=== PATIENT | female | born 1940 | race Caucasian/White ===

== ENCOUNTER → 2019-06-23 05:00 | Outpatient (REF) | payer MEDICARE, OTHER, SELFPAY ==
[2019-06-23 08:43] LABS: Valproic Acid (Depakene) Level < 3 ug/mL (50-100)
== END ==
LOC: OLS.BROOKB 05:00
DX: Z79.899 Other long term (current) drug therapy (principal)
CPT/HCPCS: 36415; 80164

== ENCOUNTER 2019-06-24 20:42 | Inpatient (IN) | payer MEDICARE, OTHER, SELFPAY ==
[2019-06-24 20:44] VITALS: BP 133/67; PULSE 96; RESP 17; TEMP 36.7; O2SAT 97; BMI 25.4
--- NOTE | 2019-06-24 21:26 | CT_ITS ---
HISTORY: FALL WITH LOC/VOMITING. Hx of Alzheimer's Technique:CT Head or Brain W/O Contrast Injection Number of Images including paperwork:231 Comparison: None available. Findings: CT images of the head were obtained without contrast. Periventricular deep and subcortical white matter disease is present. Paranasal sinuses are clear. The brain is atrophic. Calcific ASCVD involves intracranial arteries. No acute intracranial edema or hemorrhage. No acute abnormality of orbits. Middle ear cavities and mastoid air cells are well aerated. Skull is normal. CT/Brain/Head without Contrast IMPRESSION: No acute intracranial abnormality. Chronic changes as above. ASPECT 10. Individualized dose optimization techniques were used for this CT. at 2332 Reported and signed by: Marvel Beverly MD Electronically Signed: Marvel Beverly MD at 23:31 EST Tel , Service support ,
--- NOTE | 2019-06-24 21:26 | EKG12_ITS ---
Test Reason : DYSRYTHMIA Blood Pressure : / mmHG Vent. Rate : 096 BPM Atrial Rate : 096 BPM P-R Int : 184 ms QRS Dur : 130 ms QT Int : 396 ms P-R-T Axes : 041 -79 030 degrees QTc Int : 500 ms Normal sinus rhythm Right bundle branch block Left anterior fascicular block Bifascicular block Abnormal ECG Confirmed by JACOB LOZANO, HUMPHREY ([id number]), brands editor LYNNE PITTMAN ([id number]) on 06/28/2019 10:31:40 AM Referred By: QUYNH Confirmed By:MALLORY JAMES MD
--- NOTE | 2019-06-24 21:27 | CT_ITS ---
HISTORY: FALL WITH LOC/VOMITING. Hx of Alzheimer's TECHNIQUE: Helically acquired images were obtained of the abdomen and pelvis without oral or IV contrast. A radiation dose optimization technique was used for this scan. COMPARISON: None FINDINGS: # of images incl. paperwork: 422 LUNG BASES: There is a right lower lobe benign calcified granuloma. Some atelectasis and/or scarring is also present within the lung bases. CT abdomen: Degenerative disc disease is mild but greatest at the L4 L5 level with loss of disc height, endplate sclerosis, and some disc gas phenomenon. Facet arthropathy is also present within the lower lumbar spine The gallbladder remains. Liver, spleen, pancreas, and adrenal glands are normal. The kidneys are normal. The aorta is diseased with atherosclerotic circumferential plaque without aneurysm. There is no intra-or extrahepatic biliary ductal dilatation. CT pelvis: No ascites is present. The uterus and ovaries are not enlarged. The appendix is normal. Series 2 image 109. The bladder is normal. Bowel gas pattern is normal. CT/Abdomen/Pelvis without Cont IMPRESSION: No acute intra-abdominal or pelvic disease. Individualized dose optimization techniques were used for this CT. at 2342 Reported and signed by: Marvel Beverly MD Electronically Signed: Marvel Beverly MD at 23:41 EST Tel , Service support ,
--- NOTE | 2019-06-24 21:33 | ED.RN ---
NO OLD EKG
--- NOTE | 2019-06-24 21:40 | RAD_ITS ---
STUDY: X-RAY CHEST REASON FOR EXAM: Female, 78 years old. PT ARRIVES TO ED WITH N/V/D SINCE 4:30 PM THIS AFTERNOON. SHE PASSED OUT AND FELL PER DAUGHTER. TECHNIQUE: Frontal view COMPARISON: None. FINDINGS: The lungs are clear and expanded. There is no demonstrated pleural abnormality. Normal size heart. Normal mediastinum and venus. Normal visualized pulmonary arteries. Calcified visualized aortic arch and descending thoracic aorta. Degenerative changes of the thoracic spine. Normal visualized ribs, clavicles, and shoulders. There is no demonstrated abnormality of the visualized soft tissue structures of the upper abdomen. RAD/Chest 1 View (Portable) IMPRESSION: Normal x-ray examination of the chest. Electronically Signed: Abebe Newberry DO at 22:18 EST Tel [phone], Service support ,
[2019-06-24] MEDS: 0.9% Normal Saline 1,000 ML 1000 ML IV (22:21)
[2019-06-24] MEDS: Ondansetron 4 MG/2 ML Vial IV (22:21)
[2019-06-24 22:24] LABS: Absolute Lymphocyte Count 0.63 X10^3/uL (0.83-4.51); Absolute Neutrophil Count 6.9 X10^3/uL (2.0-7.7); Basophil# 0.02 X10^3/uL; Basophil% 0.2 % (0-1); Eosinophil# 0.05 X10^3/uL; Eosinophils% 0.6 % (0-5); Hematocrit 44.4 % (37-47); Hemoglobin 14.3 g/dL (12.0-15.0); Lymphocyte # 0.63 X10^3/ul (4.0); Lymphocyte % 7.8 % (19-41); Mean Corp Hgb Conc 32.2 g/dL (32-36); Mean Corpuscular Hgb 30.5 pg (27.0-32.0); Mean Corpuscular Volume 94.7 fL (81-99); Mean Platelet Vol. 9.2 fl (6.2-12.0); Monocyte# 0.41 X10^3/uL; Monocyte% 5.1 % (0-10); NRBC Flagged by Analyzer 0 % (0-5); Neutrophil % 85.9 % (47-70); Platelet Count 152 K/mm3 (150-450); RBC Distribution Width CV 13.9 % (11.6-14.6); RBC Distribution Width SD 48.2 fl (35.1-43.9); Red Blood Count 4.69 M/mm3 (4.2-5.4)
[2019-06-24 22:38] LABS: Prothrombin Time (Protime)PT. 13.4 SECONDS (11.7-14.9)
[2019-06-24 22:39] LABS: Partial Thromboplast Time 27.1 Seconds (24.1-36.2)
[2019-06-24 22:43] LABS: ALB/GLOB Ratio 1.1 RATIO (0.9-2.4); AST(SGOT) 19 U/L (15-37); Alanine Aminotransfer ALT/SGPT 28 U/L (13-56); Albumin, Serum 3.5 g/dL (3.2-5.0); Alkaline Phosphatase 67 U/L (45-117); Anion Gap 5 (5-15); BUN 15 mg/dL (7-18); BUN/Creat Ratio 18.6 RATIO (10-20); Calcium,Total 8.9 mg/dL (8.5-10.1); Chloride 106 mmol/L (98-107); Creatinine, Serum 0.81 mg/dL (0.55-1.02); EST Glomerular Filtration Rate 72 mL/min (>60); Est Glom Filt Rate - Afr Amer 88 mL/min (>60); Estimated Creatinine Clearance 43.81 ml/min; Globulin 3.2 g/dL (2.2-4.2); Glucose 120 mg/dL (74-106); Lipase 299 U/L (73-393); Potassium 4.2 mmol/L (3.5-5.1); Protein, Total 6.7 g/dL (6.4-8.2); Sodium Level 140 mmol/L (136-145)
[2019-06-24 23:00] VITALS: PULSE 91; RESP 21; O2SAT 97
[2019-06-24 23:09] LABS: Bacteria 0 SEEN /hpf (None Seen); Mucous, Urine 0 SEEN /hpf (<or=2+); Red Blood Cells-Urine 0 SEEN /hpf (0-5); White Blood Cells 0 SEEN /hpf (0-5)
[2019-06-24 23:16] LABS: Glucose, Dipstick Normal (Normal); Ketone-Dipstick 15 mg/dl (Negative); Leukocyte Esterase-Dipstick Negative /ul (Negative); Nitrite-Dipstick Negative (Negative); Occult Blood-Urine Negative /ul (Negative); Protein-Dipstick Negative (Negative); Urine Bilirubin Dipstick Negative (Negative); Urine Urobilinogen 1 mg/dl (Normal)
[2019-06-24 23:17] LABS: Color, Urine Yellow (Yellow); Urine Clarity Sl Cloudy (Clear)
[2019-06-24 23:19] LABS: Squamous Epithelial Cells - UA 0-5 SEEN /hpf (5-10)
[2019-06-24] MEDS: proMETHazine 25 MG/ML Syringe 6.25 MG IV (23:43)
--- NOTE | 2019-06-24 23:57 | ED.VISSUMM ---
- ER Visit Summary Date of Service: 06/24/19 Chief Complaint: Nausea and vomiting History of Present Illness: The patient is a 78 F who resides in the memory care unit at [place]. She presents today for nausea, vomiting. This started this afternoon. She is also having diarrhea, headaches, and she looked pale according to her family. She tried taking Zofran and sips of water, but has continued symptoms. Her daughter was getting her soup, and when she stepped away, the patient fell. She complains of pain to her left knee, but denies any other injuries. Physical Examination: Afebrile and vital signs unremarkable. Head and neck atraumatic. Heart regular. Lungs clear. Abdomen soft. Left knee tender to palpation anteriorly. No deformity or laxity. Neurovascular intact distally. Skin appears unremarkable. Alert and oriented to person. Cranial nerves grossly intact. Normal strength and sensation. Test Results: CT brain unremarkable. CT abdomen showed nothing acute. Chest x-ray showed with normal findings. EKG showed sinus rhythm at a rate of 96 with right bundle branch block pattern and left anterior fascicular block pattern. No sign of acute ischemia or infarction pattern. CBC, CMP, lipase, coags, urinalysis, troponin unremarkable. Emergency Department Course and Treatment: Patient treated with fluids and Zofran. She had continued nausea and was treated with Phenergan. Work-up, as above was all fairly unremarkable, but given her continued symptoms, her residence at a memory unit, and her falling, the hospitalist was contacted for inpatient care. X-rays of the left knee were added. Results are pending. Treatment Plan: As above Disposition: Admission for observation Impression: 1. Nausea and vomiting 2. Fall This note was generated with [employer] dictation software. It may contain incorrect words, spelling, and punctuation that were not noted in review of the chart prior to signing ED Disposition - Plan for ED Patient: Referrals: Donavan Cuenca MD [Primary Care Provider] -
--- NOTE | 2019-06-25 | RAD_ITS ---
HISTORY: FELL 06/24/19WELLING MEDIALLY EXAM: Left Knee COMPARISON: None FINDINGS: # of images incl. paperwork: 2 The joint spaces are well-maintained. No fracture or subluxation. The patellofemoral joint has a normal appearance. No joint effusion is seen. RAD/Knee 1 or 2 Views IMPRESSION: Normal left knee. at 0127 Reported and signed by: Marvel Beverly MD Electronically Signed: Marvel Beverly MD at 1:26 EST Tel , Service support ,
--- NOTE | 2019-06-25 00:09 | PCM.HP.STD ---
Problem List (1) Acute gastroenteritis Status: Acute (2) Fall Status: Acute (3) Left knee pain Status: Acute History of Present Illness Date of Admission: 06/25/19 Chief Complaint: NAUSEA; VOMITING AND DIARRHEA The patient is a 78 year old F with a significant history of Alzheimer dementia; and mitral valve prolapse and who lives at the [facility] [facility] presenting with nausea; vomiting and diarrhea. She was given Zofran at a [place] [facility] but she continued to vomit. Also she pulled her call light at the bathroom and she was found on her hands and knees. She reported that she has pain in the left knee. Per daughter patient has chronic left knee pain. However, her daughter thinks that falling might have worsened patient's pain. History was taken from patient's daughter who is the POA because patient has Alzheimer's dementia and is unable to provide history. Past Medical History Medical History: Medical History (Last Reviewed 06/25/19 @ 03:17 by Jimmy Willis MD) HTN (hypertension) I10 Allergies codeine Allergy (Verified 06/24/19 20:51) Unknown ramipril [From Altace] Allergy (Verified 06/24/19 20:51) Unknown Home Medications: Ambulatory Orders Medication Instructions Recorded Carvedilol 6.25 mg PO BID 06/24/19 Citalopram [Celexa] 10 mg PO QHS 06/24/19 Gabapentin [Neurontin] 300 mg PO TID 06/24/19 Latanoprost 0.005% [Xalatan 1 drop EACH EYE QHS 06/24/19 Opthalmic] Lorazepam 0.25 mg PO Q6H PRN PRN 06/24/19 Memantine Hydrochloride [Namenda] 10 mg PO BID 06/24/19 Ondansetron [Ondansetron Odt] 4 mg PO Q6H PRN PRN 06/24/19 Acetaminophen [Tylenol] 650 mg PO Q6H PRN PRN 06/25/19 Atorvastatin Calcium [Lipitor] 20 mg PO QHS 06/25/19 Divalproex (ER) [Depakote ER] 250 mg PO DAILY@0800 06/25/19 Divalproex (ER) [Depakote ER] 500 mg PO QHS 06/25/19 Sertraline HCl [Zoloft] 50 mg PO QHS 06/25/19 Surgical History: - - vein stripping Psychiatric History: - - Mood disorder Lives: [facility] Smoking Status: Never smoker Alcohol: Rare - *Family History Maternal History Items: Dementia Paternal History Items: Heart Disease Review of Systems Constitutional: Denies: Chills, Fever, Weight Change HEENT: Denies: Head Aches, Sinus Congestion, Sinus Drainage Cardiovascular: Denies: Chest Pain, Palpitations Respiratory: Denies: Cough, Shortness of breath at rest, Sputum production Gastrointestinal: Reports: Diarrhea, Nausea, Vomiting. Denies: Abdominal Pain Genitourinary: Denies: Dysuria Musculoskeletal: Reports: Joint Pain - Left knee pain Skin: Reports: Rash - left back and under left breast. Denies: Wounds Neurological: Denies: Numbness, Tingling, Focal weakness Psychiatric: Denies: Anxiety, Depression, Homicidal Ideations, Suicidal Ideations Hematologic/ Lymphatic: Denies: Easy Bruising, Easy Bleeding VTE Information - Inpt Only VTE Present on Admission: No VTE Mechan Device Prophylaxis: None VTE Pharm Prophylaxis ordered?: Yes Patient Problems: Active and Suspected Problems (Last Updated 06/25/19 @ 00:48 by Jimmy Willis MD) Acute gastroenteritis (Acute) Fall (Acute) Left knee pain (Acute) - Physical Exam Vitals/I&O's: Vital Signs Temp Pulse Resp BP Pulse Ox 98.1 F 91 21 H 133/67 H 97 06/24/19 20:44 06/24/19 23:00 06/24/19 23:00 06/24/19 20:44 06/24/19 23:00 Oxygen Delivery Method Room Air Weight: 63.049 kg Body Mass Index (BMI) 25.4 Intake and Output for Last 24 Hours 06/23/19 06/24/19 06/25/19 23:59 23:59 23:59 Intake Total 1000 / 1000 Balance 1000 / 1000 General: Alert, Confused HEENT: Atraumatic, PERRLA, EOMI, Normocephalic Neck: Supple, Trachea Midline Lungs: Clear to auscultation, Normal air movement, No rhonchi, No wheeze, No rales Cardiovascular: Regular rate, Normal S1, Normal S2, No murmurs Abdomen: Bowel Sounds Present, Soft, Non Tender, Hyperactive Bowel Sounds Extremities: No edema, Capillary Refill Less than 3 Seconds Skin: No breakdown, - - Erythematous patches at left upper back to under breasts (Her daughter report that it is from previous shingles). Musculoskeletal: No Tenderness to Palpation of Joints or Extremities Neurological: Cranial nerves II-XII grossly intact Psych/Mental Status: Normal Affect, Impulsive - Patient got a little impulsive and attempt to get off her bed and attempted to reach IV line. Laboratory Results 06/24/19 21:50: Urine Color Yellow, Urine Clarity Sl Cloudy, Urine pH 8.0, Ur Specific [place] 1.010, Urine Protein Negative, Urine Glucose (UA) Normal, Urine Ketones 15 H, Urine Occult Blood Negative, Urine Nitrite Negative, Urine Bilirubin Negative, Urine Urobilinogen 1 H, Ur Leukocyte Esterase Negative, Urine RBC 0 SEEN, Urine WBC 0 SEEN, Ur Squamous Epith Cells 0-5 SEEN, Urine Bacteria 0 SEEN, Urine Mucus 0 SEEN 06/24/19 22:12: WBC 8.0, RBC 4.69, Hgb 14.3, Hct 44.4, MCV 94.7, MCH 30.5, MCHC 32.2, RDW Std Deviation 48.2 H, RDW Coeff of Michele 13.9, Plt Count 152, MPV 9.2, Immature Gran % (Auto) 0.400, Neut % (Auto) 85.9 H, Lymph % (Auto) 7.8 L, Perry % (Auto) 5.1, Eos % (Auto) 0.6, Baso % (Auto) 0.2, Absolute Neuts (auto) 6.9, Absolute Lymphs (auto) 0.63 L, Nucleated RBC % 0 06/24/19 22:12: PT 13.4, INR 1.0, APTT 27.1 06/24/19 22:12: Sodium 140, Potassium 4.2, Chloride 106, Carbon Dioxide 29.0, Anion Gap 5, BUN 15, Creatinine 0.81, Estim Creat Clear Calc 43.81, Est GFR (MDRD) Af Amer 88, Est GFR (MDRD) Non-Af 72, BUN/Creatinine Ratio 18.6, Glucose 120 H, Calcium 8.9, Total Bilirubin 0.60, AST 19, ALT 28, Alkaline Phosphatase 67, Troponin I < 0.015, Total Protein 6.7, Albumin 3.5, Globulin 3.2, Albumin/Globulin Ratio 1.1, Lipase 299 Assessment/Plan All Active Problems (Last Updated 06/25/19 @ 00:48 by Jimmy Willis MD) Acute gastroenteritis (Acute) Fall (Acute) Left knee pain (Acute) The patient is a 78 year old F with a significant history of Alzheimer dementia; and mitral valve prolapse and who lives at the [place] of a [place] [facility] presenting with nausea vomiting and diarrhea consistent with acute gastroenteritis and a fall. Acute gastroenteritis Likely viral. We will get enteric pathogen panel and C. difficile test. Zofran and Compazine as needed ordered. Supportive treatment with IV hydration Will keep n.p.o. advance as tolerated. Trend CBC and BMP Fall X-ray of left knee ordered at the emergency department; follow. Probably patient fell from distress secondary to multiple nausea vomiting and diarrhea. No visible injury to left knee. Post-Herpetic Neuralgia Gabapentin continued Alzheimer dementia: On Namenda. Hypertension: Blood pressure is within goal in regards to her age. Carvedilol continued. Trend blood pressure and adjust blood pressure medication. DVT prophylaxis Subcutaneous Lovenox Code Visit OBSV E&M: [id number] Initial observation care L3
[2019-06-25 01:14] VITALS: BMI 24.7; BMI 24.8
[2019-06-25 02:09] VITALS: BP 134/61; PULSE 98; RESP 18; TEMP 36.8; O2SAT 95
[2019-06-25] MEDS: 0.9% Saline Lock 10 ML Syringe IV (02:34)
[2019-06-25] MEDS: 0.9% Normal Saline 1,000 ML 75 ML IV ×2 (02:36→14:38)
[2019-06-25] MEDS: proCHLORPERazine 10 MG/2 ML Vial 5 MG IV (02:37)
[2019-06-25 03:47] VITALS: O2SAT 95
[2019-06-25] MEDS: Gabapentin 300 MG Capsule PO ×3 (05:50→22:35)
[2019-06-25 07:12] LABS: Absolute Lymphocyte Count 0.58 X10^3/uL (0.83-4.51); Absolute Neutrophil Count 4.5 X10^3/uL (2.0-7.7); Basophil# 0.01 X10^3/uL; Basophil% 0.2 % (0-1); Eosinophil# 0.04 X10^3/uL; Eosinophils% 0.7 % (0-5); Hematocrit 40.1 % (37-47); Hemoglobin 13.2 g/dL (12.0-15.0); Lymphocyte # 0.58 X10^3/ul (4.0); Lymphocyte % 10.5 % (19-41); Mean Corp Hgb Conc 32.9 g/dL (32-36); Mean Corpuscular Hgb 31.3 pg (27.0-32.0); Mean Platelet Vol. 8.9 fl (6.2-12.0); Monocyte# 0.32 X10^3/uL; Monocyte% 5.8 % (0-10); NRBC Flagged by Analyzer 0 % (0-5); Neutrophil # 4.53 X10^3/uL (2.7-7.7); Neutrophil % 82.4 % (47-70); POSITIVE DIFFERENTIAL YES; Platelet Count 133 K/mm3 (150-450); RBC Distribution Width CV 13.8 % (11.6-14.6); RBC Distribution Width SD 48.2 fl (35.1-43.9); Red Blood Count 4.22 M/mm3 (4.2-5.4); White Blood Count 5.5 K/mm3 (4.4-11.0)
[2019-06-25 07:17] LABS: Differential Indicated SCAN CRITERIA MET
[2019-06-25 07:30] LABS: Anion Gap 0 (5-15); BUN 10 mg/dL (7-18); BUN/Creat Ratio 14.8 RATIO (10-20); Calcium,Total 8.2 mg/dL (8.5-10.1); Chloride 110 mmol/L (98-107); Creatinine, Serum 0.68 mg/dL (0.55-1.02); EST Glomerular Filtration Rate 89 mL/min (>60); Est Glom Filt Rate - Afr Amer 108 mL/min (>60); Estimated Creatinine Clearance 35.49 ml/min; Glucose 93 mg/dL (74-106); Potassium 3.7 mmol/L (3.5-5.1); Sodium Level 141 mmol/L (136-145)
[2019-06-25 09:11] VITALS: BP 122/61; PULSE 94; RESP 18; TEMP 37.2; O2SAT 95
[2019-06-25] MEDS: Divalproex (ER) 250 MG Tablet PO (09:18)
[2019-06-25] MEDS: Carvedilol 6.25 MG Tablet PO ×2 (09:18→22:34)
[2019-06-25] MEDS: Enoxaparin 40 MG/0.4 ML Syringe SC (09:19)
[2019-06-25] MEDS: Memantine Hydrochloride 10 MG Tablet PO ×2 (09:21→22:34)
--- NOTE | 2019-06-25 10:20 | PN_ITS ---
Patient Problems: Active and Suspected Problems (Last Reviewed 06/25/19 @ 03:17 by Jimmy Willis MD) Acute gastroenteritis (Acute) Fall (Acute) Left knee pain (Acute) Reason for Visit: gastroenteritis Subjective: Feels better, though still tired. No further N/V/D. Vitals/I&O's: Vital Signs Temp Pulse Resp BP Pulse Ox 37.2 C 94 18 122/61 H 95 06/25/19 09:11 06/25/19 09:11 06/25/19 09:11 06/25/19 09:11 06/25/19 09:11 Oxygen Delivery Method Room Air Weight: 61.5 kg Body Mass Index (BMI) 24.7 Intake and Output for Last 24 Hours 06/23/19 06/24/19 06/25/19 23:59 23:59 23:59 Intake Total 1000 / 1000 60 / 60 Balance 1000 / 1000 60 / 60 General: Alert, Cooperative, No apparent distress HEENT: Atraumatic, Normocephalic Oral: Moist Mucosa, No Gingival or Mucosal Lesions/ Ulcerations Neck: No Nodes, Trachea Midline Lungs: Clear to auscultation, Normal air movement, No rhonchi, No wheeze Cardiovascular: Regular rate, Regular Rhythm, Normal S1, Normal S2 Abdomen: Bowel Sounds Present, Soft, Non Tender, Non-Distended, No Hepato- splenomegaly Extremities: No edema, No Calf Tenderness Skin: No rashes, No breakdown Psych/Mental Status: Appropriate, Flat Affect Laboratory Results 06/24/19 21:50: Urine Color Yellow, Urine Clarity Sl Cloudy, Urine pH 8.0, Ur Specific [place] 1.010, Urine Protein Negative, Urine Glucose (UA) Normal, Urine Ketones 15 H, Urine Occult Blood Negative, Urine Nitrite Negative, Urine Bilirubin Negative, Urine Urobilinogen 1 H, Ur Leukocyte Esterase Negative, Urine RBC 0 SEEN, Urine WBC 0 SEEN, Ur Squamous Epith Cells 0-5 SEEN, Urine Bacteria 0 SEEN, Urine Mucus 0 SEEN 06/24/19 22:12: WBC 8.0, RBC 4.69, Hgb 14.3, Hct 44.4, MCV 94.7, MCH 30.5, MCHC 32.2, RDW Std Deviation 48.2 H, RDW Coeff of Michele 13.9, Plt Count 152, MPV 9.2, Immature Gran % (Auto) 0.400, Neut % (Auto) 85.9 H, Lymph % (Auto) 7.8 L, [place] % (Auto) 5.1, Eos % (Auto) 0.6, Baso % (Auto) 0.2, Absolute Neuts (auto) 6.9, Absolute Lymphs (auto) 0.63 L, Nucleated RBC % 0 06/24/19 22:12: PT 13.4, INR 1.0, APTT 27.1 06/24/19 22:12: Sodium 140, Potassium 4.2, Chloride 106, Carbon Dioxide 29.0, Anion Gap 5, BUN 15, Creatinine 0.81, Estim Creat Clear Calc 43.81, Est GFR (MDRD) Af Amer 88, Est GFR (MDRD) Non-Af 72, BUN/Creatinine Ratio 18.6, Glucose 120 H, Calcium 8.9, Total Bilirubin 0.60, AST 19, ALT 28, Alkaline Phosphatase 67, Troponin I < 0.015, Total Protein 6.7, Albumin 3.5, Globulin 3.2, Albumin/Globulin Ratio 1.1, Lipase 299 06/25/19 07:00: WBC 5.5, RBC 4.22, Hgb 13.2, Hct 40.1, MCV 95.0, MCH 31.3, MCHC 32.9, RDW Std Deviation 48.2 H, RDW Coeff of Michele 13.8, Plt Count 133 L, MPV 8.9, Immature Gran % (Auto) 0.400, Neut % (Auto) 82.4 H, Lymph % (Auto) 10.5 L, [place] % (Auto) 5.8, Eos % (Auto) 0.7, Baso % (Auto) 0.2, Absolute Neuts (auto) 4.5, Absolute Lymphs (auto) 0.58 L, Nucleated RBC % 0, Differential Comment COMMENT 06/25/19 07:00: Sodium 141, Potassium 3.7, Chloride 110 H, Carbon Dioxide 31.0, Anion Gap 0 L, BUN 10, Creatinine 0.68, Estim Creat Clear Calc 35.49, Est GFR (MDRD) Af Amer 108, Est GFR (MDRD) Non-Af 89, BUN/Creatinine Ratio 14.8, Glucose 93, Calcium 8.2 L Current Medications Acetaminophen (Tylenol) 650 mg PO Q6H PRN PRN PRN Reason: Pain Score 1-10/Temp > 100.7 F Atorvastatin Calcium (Lipitor) 20 mg PO QHS [facility] Carvedilol (Coreg) 6.25 mg PO BID [facility] Last Admin: 06/25/19 09:18 Dose: 6.25 mg Documented by: Citalopram Hydrobromide (Celexa) 10 mg PO DAILY@2200 [facility] Divalproex Sodium (Depakote Er) 250 mg PO DAILY@0800 [facility] Last Admin: 06/25/19 09:18 Dose: 250 mg Documented by: Divalproex Sodium (Depakote Er) 500 mg PO QHS [facility] Enoxaparin Sodium (Lovenox) 40 mg SC DAILY [facility] Last Admin: 06/25/19 09:19 Dose: 40 mg Documented by: Gabapentin (Neurontin) 300 mg PO TID [facility] Last Admin: 06/25/19 05:50 Dose: 300 mg Documented by: Glucagon () 1 mg IM .X1 PRN PRN Reason: Hypoglycemia Sodium Chloride () 1,000 mls @ 75 mls/hr IV .[id number] [facility] Last Admin: 06/25/19 02:36 Dose: 75 mls/hr Documented by: Dextrose (Dextrose 10%-Water) 250 mls @ 999 mls/hr IV .Q16M PRN; Protocol PRN Reason: HYPOGLYCEMIA Latanoprost (Xalatan Opthalmic) 1 drop EACH EYE QHS [facility] Lorazepam (Ativan) 0.25 mg PO Q6H PRN PRN PRN Reason: ANXIETY Melatonin (Melatonin) 3 mg PO QHS PRN PRN PRN Reason: INSOMNIA Memantine (Namenda) 10 mg PO BID [facility] Last Admin: 06/25/19 09:21 Dose: 10 mg Documented by: Ondansetron HCl (Zofran) 4 mg IV Q8H PRN PRN PRN Reason: NAUSEA/VOMITING Prochlorperazine Edisylate (Compazine Iv) 5 mg IV Q4H PRN PRN PRN Reason: Breakthrough nausea/vomiting Last Admin: 06/25/19 02:37 Dose: 5 mg Documented by: Sertraline HCl (Zoloft) 50 mg PO QHS [facility] Sodium Chloride () 10 - 40 ml IV UD PRN PRN Reason: SALINE FLUSH Last Admin: 06/25/19 02:34 Dose: 10 ml Documented by: STROKE Vital Signs/Narrative: Vital Signs Temp Pulse Resp BP Pulse Ox 06/25/19 09:11 37.2 C 94 18 122/61 H 95 Medical Necessity - Tobacco Use Smoking Status: Never smoker Assessment/Plan All Active Problems (Last Reviewed 06/25/19 @ 03:17 by Jimmy Willis MD) Acute gastroenteritis (Acute) Fall (Acute) Left knee pain (Acute) 1. acute gastroenteritis * improving * advance diet to fulls, may advance if tolerates that. * continue IVF 2. Post-herpetic neuralgia * on gabapentin * dw dtr, that we may have to hold it if she becomes confused 3. Dementia * resides in the memory unit a long-term facility. * DW dtr about risks of delirium: sleep deprivation that is common in hospitals, being in a new environment and medications. 4. VTE proph: LMWH Code Visit Procedures: Other Procedure - See Report - non-billable rounding
--- NOTE | 2019-06-25 10:49 | CASEMGMT ---
Addendum entered by oFuzia Overton 06/25/19 11:18: Pt is alert and orientated to self only. Pt's daughter Chaitanya is present at [facility]. [facility] met with pt and pt's daughter Chaitanya. Chaitanya confirms that pt is from [facility] (in the memory care unit) and the plan is for pt to return once medically cleared. Green sheet and transport form on pt's chart. Plan: Returnt to [facility] once medically cleared. Original Note: Social Work Note Pt is listed as being from [facility]. [facility] faxed updated clinicals to [facility]. Fouzia Overton FURNACE CLERK, CHAIR INSPECTOR AND LEVELER
[2019-06-25 14:41] VITALS: O2SAT 95
[2019-06-25 14:47] VITALS: BP 101/50; PULSE 90; RESP 18; TEMP 37.3; O2SAT 93
[2019-06-25] MEDS: Acetaminophen 325 MG Tablet 650 MG PO (16:49)
[2019-06-25 21:01] VITALS: BP 101/45; PULSE 80; RESP 18; TEMP 36.6; O2SAT 95
[2019-06-25] MEDS: Latanoprost 0.005% 1 Bottle 1 DRP EACH EYE (22:33)
[2019-06-25] MEDS: Ondansetron 4 MG/2 ML Vial IV (22:33)
[2019-06-25] MEDS: Divalproex (ER) 500 MG Tablet PO (22:34)
[2019-06-25] MEDS: Sertraline 50 MG Tablet PO (22:34)
[2019-06-25] MEDS: Citalopram 10 MG Tablet PO (22:35)
[2019-06-25] MEDS: Atorvastatin Calcium 20 MG Tablet PO (22:35)
[2019-06-26] MEDS: Acetaminophen 325 MG Tablet 650 MG PO (01:04)
[2019-06-26] MEDS: MELATONIN 3 MG TABLET PO ×2 (02:09→22:27)
[2019-06-26] MEDS: LORazepam 0.5 MG Tablet 0.25 MG PO ×3 (02:09→22:26)
[2019-06-26] MEDS: 0.9% Normal Saline 1,000 ML 75 ML IV ×2 (03:27→20:43)
[2019-06-26 03:59] VITALS: BP 108/48; PULSE 77; RESP 18; TEMP 36.4; O2SAT 92
[2019-06-26] MEDS: Gabapentin 300 MG Capsule PO ×3 (06:48→22:27)
[2019-06-26 07:51] VITALS: O2SAT 90
--- NOTE | 2019-06-26 09:42 | PCM.PN.HOSP ---
Patient Problems: Active and Suspected Problems (Last Reviewed 06/25/19 @ 03:17 by Jimmy Willis MD) Acute gastroenteritis (Acute) Fall (Acute) Left knee pain (Acute) Reason for Visit: N/V Subjective: Eating some. Some nausea earlier today. Has been having frequent diarrhea. Vitals/I&O's: Vital Signs Temp Pulse Resp BP Pulse Ox 36.4 C L 77 18 108/48 L 90 06/26/19 03:59 06/26/19 03:59 06/26/19 03:59 06/26/19 03:59 06/26/19 07:51 Oxygen Delivery Method Room Air Weight: 61.5 kg Body Mass Index (BMI) 24.7 Intake and Output for Last 24 Hours 06/24/19 06/25/19 06/26/19 23:59 23:59 23:59 Intake Total 1000 / 1000 1082.5 / 1082.5 1061.25 / 1061.25 Output Total 800 / 800 Balance 1000 / 1000 282.5 / 282.5 1061.25 / 1061.25 General: Alert, No apparent distress HEENT: Atraumatic, Normocephalic Oral: Moist Mucosa, No Gingival or Mucosal Lesions/ Ulcerations Neck: No Nodes, Trachea Midline Lungs: Clear to auscultation, Normal air movement, No rhonchi, No wheeze Cardiovascular: Regular rate, Regular Rhythm, Normal S1, Normal S2, No murmurs Abdomen: Bowel Sounds Present, Soft, Non Tender, Non-Distended, No Hepato-splenomegaly Extremities: No edema, No Calf Tenderness Psych/Mental Status: Appropriate, Flat Affect Microbiology Past 72 Hours 06/26/19 00:54 Stool C. difficile DNA Amplification - Final Current Medications Acetaminophen (Tylenol) 650 mg PO Q6H PRN PRN PRN Reason: Pain Score 1-10/Temp > 100.7 F Last Admin: 06/26/19 01:04 Dose: 650 mg Documented by: Atorvastatin Calcium (Lipitor) 20 mg PO QHS [facility] Last Admin: 06/25/19 22:35 Dose: 20 mg Documented by: Carvedilol (Coreg) 6.25 mg PO BID [facility] Last Admin: 06/25/19 22:34 Dose: 6.25 mg Documented by: Citalopram Hydrobromide (Celexa) 10 mg PO DAILY@2200 [facility] Last Admin: 06/25/19 22:35 Dose: 10 mg Documented by: Divalproex Sodium (Depakote Er) 250 mg PO DAILY@0800 [facility] Last Admin: 06/25/19 09:18 Dose: 250 mg Documented by: Divalproex Sodium (Depakote Er) 500 mg PO QHS [facility] Last Admin: 06/25/19 22:34 Dose: 500 mg Documented by: Enoxaparin Sodium (Lovenox) 40 mg SC DAILY [facility] Last Admin: 06/25/19 09:19 Dose: 40 mg Documented by: Gabapentin (Neurontin) 300 mg PO TID [facility] Last Admin: 06/26/19 06:48 Dose: 300 mg Documented by: Glucagon () 1 mg IM .X1 PRN PRN Reason: Hypoglycemia Sodium Chloride () 1,000 mls @ 75 mls/hr IV .[id number] [facility] Last Admin: 06/26/19 03:27 Dose: 75 mls/hr Documented by: Dextrose (Dextrose 10%-Water) 250 mls @ 999 mls/hr IV .Q16M PRN; Protocol PRN Reason: HYPOGLYCEMIA Latanoprost (Xalatan Opthalmic) 1 drop EACH EYE QHS [facility] Last Admin: 06/25/19 22:33 Dose: 1 drop Documented by: Loperamide HCl (Imodium) 2 mg PO Q4H PRN PRN PRN Reason: Diarrhea Lorazepam (Ativan) 0.25 mg PO Q6H PRN PRN PRN Reason: ANXIETY Last Admin: 06/26/19 02:09 Dose: 0.25 mg Documented by: Melatonin (Melatonin) 3 mg PO QHS PRN PRN PRN Reason: INSOMNIA Last Admin: 06/26/19 02:09 Dose: 3 mg Documented by: Memantine (Namenda) 10 mg PO BID [facility] Last Admin: 06/25/19 22:34 Dose: 10 mg Documented by: Ondansetron HCl (Zofran) 4 mg IV Q8H PRN PRN PRN Reason: NAUSEA/VOMITING Last Admin: 06/25/19 22:33 Dose: 4 mg Documented by: Prochlorperazine Edisylate (Compazine Iv) 5 mg IV Q4H PRN PRN PRN Reason: Breakthrough nausea/vomiting Last Admin: 06/25/19 02:37 Dose: 5 mg Documented by: Sertraline HCl (Zoloft) 50 mg PO QHS [facility] Last Admin: 06/25/19 22:34 Dose: 50 mg Documented by: Sodium Chloride () 10 - 40 ml IV UD PRN PRN Reason: SALINE FLUSH Last Admin: 06/25/19 02:34 Dose: 10 ml Documented by: STROKE Vital Signs/Narrative: Vital Signs Pulse Ox 06/26/19 07:51 90 Medical Necessity - Tobacco Use Smoking Status: Never smoker Assessment/Plan All Active Problems (Last Reviewed 06/25/19 @ 03:17 by Jimmy Willis MD) Acute gastroenteritis (Acute) Fall (Acute) Left knee pain (Acute) 1. acute gastroenteritis improving advance diet to fulls, may advance if tolerates that. continue IVF now with diarrhea. Negative for C diff. start loperamide 2. Post-herpetic neuralgia on gabapentin dw dtr, that we may have to hold it if she becomes confused 3. Dementia resides in the memory unit a long-term facility. DW dtr about risks of delirium: sleep deprivation that is common in hospitals, being in a new environment and medications. 4. VTE proph: LMWH DW Dtr at bedside. Likely will monitor another 24 hours to ensure that she can eat more and that the diarrhea has abated. Code Visit Inpatient E&M: 42156 Subs Hosp L2
[2019-06-26 10:30] VITALS: BP 121/64; PULSE 73; RESP 18; TEMP 36.7; O2SAT 95
[2019-06-26] MEDS: Divalproex (ER) 250 MG Tablet PO (10:34)
[2019-06-26] MEDS: Carvedilol 6.25 MG Tablet PO ×2 (10:35→22:27)
[2019-06-26] MEDS: Enoxaparin 40 MG/0.4 ML Syringe SC (10:35)
[2019-06-26] MEDS: Memantine Hydrochloride 10 MG Tablet PO ×2 (10:35→22:28)
[2019-06-26] MEDS: Loperamide 2 MG Capsule 4 MG PO (10:35)
[2019-06-26] MEDS: 0.9% Saline Lock 10 ML Syringe IV ×2 (14:41→20:44)
[2019-06-26 14:43] VITALS: BP 134/78; PULSE 76; RESP 16; TEMP 36.6; O2SAT 94
--- NOTE | 2019-06-26 19:42 | NURSING ---
reviewed and agree with all documentation completed by MARK Trejo
[2019-06-26 20:32] VITALS: BP 138/71; PULSE 82; RESP 16; TEMP 36.7; O2SAT 94
[2019-06-26 22:24] VITALS: BP 148/73; PULSE 73; RESP 18; TEMP 36.7; O2SAT 95
[2019-06-26] MEDS: Sertraline 50 MG Tablet PO (22:27)
[2019-06-26] MEDS: Citalopram 10 MG Tablet PO (22:27)
[2019-06-26] MEDS: Atorvastatin Calcium 20 MG Tablet PO (22:27)
[2019-06-26] MEDS: Divalproex (ER) 500 MG Tablet PO (22:27)
[2019-06-26] MEDS: Latanoprost 0.005% 1 Bottle 1 DRP EACH EYE (22:28)
[2019-06-27 04:25] VITALS: BP 129/51; PULSE 72; RESP 16; TEMP 36.7; O2SAT 93
[2019-06-27] MEDS: Gabapentin 300 MG Capsule PO (06:39)
[2019-06-27 07:10] VITALS: O2SAT 91
--- NOTE | 2019-06-27 08:43 | DCINST_ITS ---
- Discharge Diagnoses Current Active Problems: Current Active and Chronic Problems (Last Reviewed 06/25/19 @ 03:17 by Jimmy Willis MD) Acute gastroenteritis (Acute) Fall (Acute) Left knee pain (Acute) You will use the following diet at home:: No restrictions Allergies/Adverse Reactions: Allergies codeine Allergy (Verified 06/24/19 20:51) Unknown ramipril [From Altace] Allergy (Verified 06/24/19 20:51) Unknown Medications to take at Discharge Carvedilol 6.25 mg PO BID 06/24/19 Citalopram [Celexa] 10 mg PO QHS 06/24/19 Gabapentin [Neurontin] 300 mg PO TID 06/24/19 Latanoprost 0.005% [Xalatan Opthalmic] 1 drop EACH EYE QHS 06/24/19 Lorazepam 0.25 mg PO Q6H PRN PRN 06/24/19 Memantine Hydrochloride [Namenda] 10 mg PO BID 06/24/19 Ondansetron [Ondansetron Odt] 4 mg PO Q6H PRN PRN 06/24/19 Acetaminophen [Tylenol Tablet] 650 mg PO Q6H PRN PRN 06/25/19 Atorvastatin Calcium [Lipitor] 20 mg PO QHS 06/25/19 Divalproex (ER) [Depakote ER] 250 mg PO DAILY@0800 06/25/19 Divalproex (ER) [Depakote ER] 500 mg PO QHS 06/25/19 Sertraline HCl [Zoloft] 50 mg PO QHS 06/25/19 Loperamide [Imodium] 2 mg PO Q4H PRN PRN capsule 06/27/19 Primary Care Physician: Donavan Cuenca MD [Primary Care Provider] - Within 2 Weeks Test Results: Test results from this visit will be discussed in further detail at your follow- up appointment, if applicable. Proposed Discharge Date: 06/27/19
--- NOTE | 2019-06-27 08:44 | DS.PCM_ITS ---
Discharge Date and Diagnosis - Problem List Patient Problems: Active and Suspected Problems (Last Reviewed 06/25/19 @ 03:17 by Jimmy Willis MD) Acute gastroenteritis (Acute) Fall (Acute) Left knee pain (Acute) Date of Admission: 06/25/19 Date of Discharge: 06/27/19 - Primary Discharge Diagnosis Active and Suspected Problems (Last Reviewed 06/25/19 @ 03:17 by Jimmy Willis MD) Acute gastroenteritis (Acute) Fall (Acute) Left knee pain (Acute) Hospital Course and Treatment Imaging Results: Clinical Impression(s) from Imaging Studies Brain CT 06/24/19 21:26 IMPRESSION: No acute intracranial abnormality. Chronic changes as above. ASPECT 10. Individualized dose optimization techniques were used for this CT. at 2332 Reported and signed by: Marvel Beverly MD Electronically Signed: Marvel Beverly MD at 23:31 EST Tel , Service support , Abdomen/Pelvis CT 06/24/19 21:27 IMPRESSION: No acute intra-abdominal or pelvic disease. Individualized dose optimization techniques were used for this CT. at 2342 Reported and signed by: Marvel Beverly MD Electronically Signed: Marvel Beverly MD at 23:41 EST Tel , Service support , Chest X-Ray 06/24/19 21:40 IMPRESSION: Normal x-ray examination of the chest. Electronically Signed: Abebe Newberry DO at 22:18 EST Tel [phone], Service support , Knee X-Ray 06/25/19 00:00 IMPRESSION: Normal left knee. at 0127 Reported and signed by: Marvel Beverly MD Electronically Signed: Marvel Beverly MD at 1:26 EST Tel , Service support , Operations: None Procedures: None Summary of Care Provided: The patient is a 78 year old F with nausea vomiting and diarrhea. Began suddenly. Patient was very sick in her bathroom and then felt her hands and knees. Patient had some left knee pain fortunately x-ray was normal. Patient tested positive for norovirus. Patient slowly improved and today, patient is not having further diarrhea and has been tolerating diet. Plan is for the patient to return back to [facility] living [facility]. [] Patient Problems: Active and Suspected Problems (Last Reviewed 06/25/19 @ 03:17 by Jimmy Willis MD) Acute gastroenteritis (Acute) Fall (Acute) Left knee pain (Acute) - Physical Exam Vitals/I&O's: Vital Signs Temp Pulse Resp BP Pulse Ox 36.7 C 72 16 129/51 H 91 06/27/19 04:25 06/27/19 04:25 06/27/19 04:25 06/27/19 04:25 06/27/19 07:10 Oxygen Delivery Method Room Air Weight: 61.5 kg Body Mass Index (BMI) 24.7 Intake and Output for Last 24 Hours 06/25/19 06/26/19 06/27/19 23:59 23:59 23:59 Intake Total 1082.5 / 1082.5 2900.00 / 2900.00 200 / 200 Output Total 800 / 800 1900 / 1900 Balance 282.5 / 282.5 1000.00 / 1000.00 200 / 200 General: Alert, Cooperative, No apparent distress HEENT: Atraumatic, Normocephalic Oral: Moist Mucosa, No Gingival or Mucosal Lesions/ Ulcerations Neck: No Nodes, Trachea Midline Lungs: Clear to auscultation, Normal air movement, No rhonchi, No wheeze, No rales Cardiovascular: Regular rate, Regular Rhythm, Normal S1, Normal S2, No murmurs Abdomen: Bowel Sounds Present, Soft, Non Tender, Non-Distended, No Hepato- splenomegaly Extremities: No edema, No Calf Tenderness Psych/Mental Status: Normal Affect, Appropriate Microbiology Past 72 Hours 06/26/19 00:54 Stool Enteric Bacteriology - Final Norovirus 06/26/19 00:54 Stool C. difficile DNA Amplification - Final Current Medications Acetaminophen (Tylenol) 650 mg PO Q6H PRN PRN PRN Reason: Pain Score 1-10/Temp > 100.7 F Last Admin: 06/26/19 01:04 Dose: 650 mg Documented by: Atorvastatin Calcium (Lipitor) 20 mg PO QHS [facility] Last Admin: 06/26/19 22:27 Dose: 20 mg Documented by: Carvedilol (Coreg) 6.25 mg PO BID [facility] Last Admin: 06/26/19 22:27 Dose: 6.25 mg Documented by: Citalopram Hydrobromide (Celexa) 10 mg PO DAILY@2200 [facility] Last Admin: 06/26/19 22:27 Dose: 10 mg Documented by: Divalproex Sodium (Depakote Er) 250 mg PO DAILY@0800 [facility] Last Admin: 06/26/19 10:34 Dose: 250 mg Documented by: Divalproex Sodium (Depakote Er) 500 mg PO QHS [facility] Last Admin: 06/26/19 22:27 Dose: 500 mg Documented by: Enoxaparin Sodium (Lovenox) 40 mg SC DAILY [facility] Last Admin: 06/26/19 10:35 Dose: 40 mg Documented by: Gabapentin (Neurontin) 300 mg PO TID [facility] Last Admin: 06/27/19 06:39 Dose: 300 mg Documented by: Glucagon () 1 mg IM .X1 PRN PRN Reason: Hypoglycemia Sodium Chloride () 1,000 mls @ 75 mls/hr IV .[id number] [facility] Last Admin: 06/26/19 20:43 Dose: 75 mls/hr Documented by: Dextrose (Dextrose 10%-Water) 250 mls @ 999 mls/hr IV .Q16M PRN; Protocol PRN Reason: HYPOGLYCEMIA Latanoprost (Xalatan Opthalmic) 1 drop EACH EYE QHS [facility] Last Admin: 06/26/19 22:28 Dose: 1 drop Documented by: Loperamide HCl (Imodium) 2 mg PO Q4H PRN PRN PRN Reason: Diarrhea Lorazepam (Ativan) 0.25 mg PO Q6H PRN PRN PRN Reason: ANXIETY Last Admin: 06/26/19 22:26 Dose: 0.25 mg Documented by: Melatonin (Melatonin) 3 mg PO QHS PRN PRN PRN Reason: INSOMNIA Last Admin: 06/26/19 22:27 Dose: 3 mg Documented by: Memantine (Namenda) 10 mg PO BID [facility] Last Admin: 06/26/19 22:28 Dose: 10 mg Documented by: Ondansetron HCl (Zofran) 4 mg IV Q8H PRN PRN PRN Reason: NAUSEA/VOMITING Last Admin: 06/25/19 22:33 Dose: 4 mg Documented by: Prochlorperazine Edisylate (Compazine Iv) 5 mg IV Q4H PRN PRN PRN Reason: Breakthrough nausea/vomiting Last Admin: 06/25/19 02:37 Dose: 5 mg Documented by: Sertraline HCl (Zoloft) 50 mg PO QHS [facility] Last Admin: 06/26/19 22:27 Dose: 50 mg Documented by: Sodium Chloride () 10 - 40 ml IV UD PRN PRN Reason: SALINE FLUSH Last Admin: 06/26/19 20:44 Dose: 10 ml Documented by: Home Medications: Medications to take at Discharge Carvedilol 6.25 mg PO BID 06/24/19 Citalopram [Celexa] 10 mg PO QHS 06/24/19 Gabapentin [Neurontin] 300 mg PO TID 06/24/19 Latanoprost 0.005% [Xalatan Opthalmic] 1 drop EACH EYE QHS 06/24/19 Lorazepam 0.25 mg PO Q6H PRN PRN 06/24/19 Memantine Hydrochloride [Namenda] 10 mg PO BID 06/24/19 Ondansetron [Ondansetron Odt] 4 mg PO Q6H PRN PRN 06/24/19 Acetaminophen [Tylenol Tablet] 650 mg PO Q6H PRN PRN 06/25/19 Atorvastatin Calcium [Lipitor] 20 mg PO QHS 06/25/19 Divalproex (ER) [Depakote ER] 250 mg PO DAILY@0800 06/25/19 Divalproex (ER) [Depakote ER] 500 mg PO QHS 06/25/19 Sertraline HCl [Zoloft] 50 mg PO QHS 06/25/19 Loperamide [Imodium] 2 mg PO Q4H PRN PRN capsule 06/27/19 Primary Care Physician: Donavan Cuenca MD [Primary Care Provider] - Within 2 Weeks Disposition: Asstd Living/Non-Skill NH Minutes spent on discharge:: 32 Patient Condition:: Fair Medical Necessity - Tobacco Use Smoking Status: Never smoker Meaningful Use Info Meaningful Use Diagnoses (Choose all that apply): None applicable Code Visit Inpatient E&M: 08052 Disch Hosp
[2019-06-27] MEDS: Carvedilol 6.25 MG Tablet PO (09:10)
[2019-06-27] MEDS: Divalproex (ER) 250 MG Tablet PO (09:12)
[2019-06-27] MEDS: Memantine Hydrochloride 10 MG Tablet PO (09:13)
[2019-06-27 09:20] VITALS: PULSE 84
[2019-06-27] MEDS: LORazepam 0.5 MG Tablet 0.25 MG PO (10:41)
[2019-06-27 10:42] VITALS: BP 152/66; PULSE 73; RESP 18; TEMP 36.6; O2SAT 96
== END 2019-06-27 10:50 | disposition home or self-care (01) | DRG 392 ==
LOC: ED 21:46 → MS3 06-25 00:48
PROVIDERS: Admitting Provider Hospitalist; Emergency Provider Emergency Medicine; PCP Family Medicine
DX: A08.11 Acute gastroenteropathy due to Norwalk agent (principal); B02.29 Other postherpetic nervous system involvement; F02.80 Dementia in other diseases classified elsewhere, unspecified severity, without behavioral disturbance, psychotic disturbance, mood disturbance, and anxiety; G30.9 Alzheimer's disease, unspecified; I10 Essential (primary) hypertension; I34.1 Nonrheumatic mitral (valve) prolapse; M25.562 Pain in left knee; W18.30XA Fall on same level, unspecified, initial encounter; Y92.091 Bathroom in other non-institutional residence as the place of occurrence of the external cause; Z79.899 Other long term (current) drug therapy
CPT/HCPCS: 36415; 51702; 70450; 71045; 73560; 74176; 80048; 80053; 80164; 81001; 83690; 84484; 85025; 85610; 85730; 87493; 87506; 93005; 99285; J7030; A4216; J2405

== ENCOUNTER → 2019-08-02 15:00 | Outpatient (REF) | payer MEDICARE, OTHER, SELFPAY ==
[2019-06-25 01:14] VITALS: BMI 24.7
[2019-08-03 08:28] LABS: Bacteria 0 SEEN /hpf (None Seen); Mucous, Urine 0 SEEN /hpf (<or=2+); Red Blood Cells-Urine 0 SEEN /hpf (0-5); Squamous Epithelial Cells - UA 0 SEEN /hpf (5-10)
[2019-08-03 08:57] LABS: Color, Urine Yellow (Yellow); Glucose, Dipstick Normal (Normal); Ketone-Dipstick Negative (Negative); Leukocyte Esterase-Dipstick Negative /ul (Negative); Nitrite-Dipstick Negative (Negative); Occult Blood-Urine Negative /ul (Negative); Protein-Dipstick Negative (Negative); Urine Bilirubin Dipstick Negative (Negative); Urine Clarity Clear (Clear); Urine Urobilinogen Normal (Normal)
[2019-08-03 09:04] LABS: White Blood Cells 0-5 SEEN /hpf (0-5)
== END ==
LOC: OLS.BROOKB 15:00
PROVIDERS: PCP Family Medicine
DX: N39.0 Urinary tract infection, site not specified (principal)
CPT/HCPCS: 81001; 87077; 87086; 87088; 87186

== ENCOUNTER → 2019-08-28 08:20 | Outpatient (CLI) | payer MEDICARE, OTHER, SELFPAY ==
[2019-06-25 01:14] VITALS: BMI 24.7
[2019-08-28 08:33] LABS: Color, Urine Yellow (Yellow); Glucose, Dipstick Normal (Normal); Ketone-Dipstick 15 mg/dl (Negative); Leukocyte Esterase-Dipstick 100 /ul (Negative); Nitrite-Dipstick Negative (Negative); Occult Blood-Urine Negative /ul (Negative); Protein-Dipstick 15 mg/dl (Negative); Specific Gravity, Urine 1.025 (1.002-1.030); Urine Bilirubin Dipstick Negative (Negative); Urine Clarity Clear (Clear); Urine Urobilinogen 4 mg/dl (Normal)
== END ==
PROVIDERS: PCP Family Medicine; Visit Provider Family Medicine
DX: N39.0 Urinary tract infection, site not specified (principal)
CPT/HCPCS: 81002

== ENCOUNTER → 2019-08-29 16:30 | Outpatient (REF) | payer MEDICARE, OTHER, SELFPAY ==
[2019-06-25 01:14] VITALS: BMI 24.7
[2019-08-30 08:37] LABS: Mucous, Urine 0 SEEN /hpf (<or=2+)
[2019-08-30 08:59] LABS: Color, Urine Yellow (Yellow); Glucose, Dipstick Normal (Normal); Ketone-Dipstick 15 mg/dl (Negative); Leukocyte Esterase-Dipstick 100 /ul (Negative); Nitrite-Dipstick Negative (Negative); Occult Blood-Urine 50 /ul (Negative); Protein-Dipstick Negative (Negative); Specific Gravity, Urine 1.015 (1.002-1.030); Urine Bilirubin Dipstick Negative (Negative); Urine Clarity Sl. Cloudy (Clear); Urine Urobilinogen 4 mg/dl (Normal)
[2019-08-30 09:08] LABS: Red Blood Cells-Urine 0-5 SEEN /hpf (0-5); Squamous Epithelial Cells - UA 0-5 SEEN /hpf (5-10); White Blood Cells 5-10 SEEN /hpf (0-5)
[2019-08-30 09:09] LABS: Bacteria 1+ /hpf (None Seen); Calcium Oxalate Crystals Ur 1+ /hpf (<or=2+)
== END ==
LOC: OLS.BROOKB 16:30
PROVIDERS: PCP Family Medicine
DX: N39.0 Urinary tract infection, site not specified (principal)
CPT/HCPCS: 81001; 87086; 87088

== ENCOUNTER 2019-09-23 09:32 | Emergency (ER) | payer MEDICARE, OTHER, SELFPAY ==
[2019-06-25 01:14] VITALS: BMI 24.7
[2019-09-23 09:32] VITALS: BP 149/77; PULSE 82; RESP 20; TEMP 36.2; O2SAT 98; BMI 19.9
--- NOTE | 2019-09-23 09:45 | CT_ITS ---
STUDY: CT CERVICAL SPINE WITHOUT CONTRAST REASON FOR EXAM: Female, 79 years old. FELL AT ECF, BRUISING TO EYES AND ACROSS NOSE, HX-DEMENTIA, PT VERY CONFUSED RADIATION DOSAGE (If Supplied By Facility): CTDIvol = ( 17.06 ) mGy, DLP = ( 270.76 ) mGycm TECHNIQUE: High resolution transaxial imaging was performed without contrast material. Sagittal and coronal images were reconstructed. Individualized dose optimization techniques were used for this CT. COMPARISON: None FINDINGS: Normal craniovertebral junction. There are degenerative changes of the anterior atlantoaxial articulation. Normal odontoid process. There is straightening of the normal cervical lordosis. Normal vertebral bodies and posterior osseous elements. C2-3: Facet joint osteoarthritis and hypertrophy worse on the left side. C3-4: Minimal anterior listhesis of C3 on C4. Facet joint osteoarthritis and hypertrophy. Uncovertebral arthrosis with bilateral neural foraminal stenosis. C4-5: Facet joint osteoarthritis uncovertebral arthrosis. Mild degree of bilateral neural foraminal stenosis C5-6: Marked degree of disc space narrowing with spondylosis. Uncovertebral arthrosis and facet joint osteoarthritis with hypertrophy. Bilateral neural foraminal stenosis worse on the left side. C6-7: Moderate degree of disc space narrowing with spondylosis and facet joint osteoarthritis. Mild bilateral neural foraminal stenosis. Normal visualized soft tissue structures. CT/Spine Cervical without Contras IMPRESSION: Multilevel degenerative changes, as described above. Electronically Signed: Farhad Soares, at 10:39 EDT , Service support ,
--- NOTE | 2019-09-23 09:45 | CT_ITS ---
STUDY: CT BRAIN WITHOUT CONTRAST REASON FOR EXAM: Female, 79 years old. FELL AT ECF, BRUISING TO EYES AND ACROSS NOSE, HX-DEMENTIA, PT VERY CONFUSED RADIATION DOSAGE (If Supplied By Facility): CTDIvol = ( 60.81 ) mGy, DLP = ( 1450 ) mGycm TECHNIQUE: Transaxial CT imaging of the brain was performed without administration of intravenous contrast material. Individualized dose optimization techniques were used for this CT. COMPARISON: Comparison is made with prior study dated June 24, 2019. FINDINGS: Soft tissue swelling overlying the nose. Increased soft tissue density within the nasal fossa. This may be related to possible epistaxis. Normal calvarium. There is moderate cerebral atrophy with widening of the extra-axial spaces and ventricular dilatation. There are areas of decreased attenuation within the white matter tracts of the supratentorial brain, consistent with microvascular disease changes. Normal basal ganglia and thalami. Normal brainstem. Normal cerebellum. There is no intracranial hemorrhage. There are no findings of an acute ischemic infarction. Small air-fluid level along the dependent portion of the right maxillary sinus. CT/Brain/Head without Contrast IMPRESSION: Chronic involutional changes of the brain. Soft tissue swelling overlying the nose. Electronically Signed: Farhad Soares, at 10:33 EDT , Service support ,
--- NOTE | 2019-09-23 09:58 | ED.RN ---
THIS NURSE SPOKE WITH NURSE AT [facility], PT NURSE PT FELL THIS MORNING AROUND 0700. WAS C/O NECK AND HIP PAIN. RECENTLY TAKEN OFF ZOLOFT AND STARTED ON REMERON. PT NOT EATING OR SLEEPING. VERY SEXUALLY INAPPROPRIATE TOWARD OTHERS. HAS BEEN FOUND IN THE ROOM OF SEVERAL MALE PATIENTS HAVING INTERCOURSE WITH PATIENT. HAS BEEN FLIPPING THE FURNITURE. NORMALLY ONLY ORIENTED TO SELF.
--- NOTE | 2019-09-23 09:59 | EKG12_ITS ---
Test Reason : FALL Blood Pressure : / mmHG Vent. Rate : 076 BPM Atrial Rate : 076 BPM P-R Int : 178 ms QRS Dur : 106 ms QT Int : 418 ms P-R-T Axes : 054 -52 028 degrees QTc Int : 470 ms Normal sinus rhythm Left anterior fascicular block Abnormal ECG Confirmed by ERNIE STEWART ([id number]), manager editorial LYNNE PITTMAN ([id number]) on 09/27/2019 2:51:40 PM Referred By: CODY Confirmed By:ERNIE STEWART
--- NOTE | 2019-09-23 10:10 | RAD_ITS ---
STUDY: X-RAY - LEFT HUMERUS REASON FOR EXAM: Female, 79 years old. PAIN, S/P FALL TECHNIQUE: 2 view(s) of the humerus. COMPARISON: None. FINDINGS: Normal visualized humerus. There is no demonstrated fracture or osseous destructive process. There is no demonstrated soft tissue abnormality. RAD/Humerus min 2 Views IMPRESSION: Normal x-ray examination of the humerus. Electronically Signed: Farhad Soares, at 10:35 EDT , Service support ,
--- NOTE | 2019-09-23 10:10 | RAD_ITS ---
STUDY: X-RAY - PELVIS AND RIGHT HIP REASON FOR EXAM: Female, 79 years old. LATERAL BRUISING S/P FALL, PAIN TECHNIQUE: 3 views of the pelvis and hip. COMPARISON: None. FINDINGS: There is a non-specific bowel gas pattern. The metallic ring is seen overlying the right hemipelvis. This may be extrinsic to the patient. Clinical correlation is recommended. Normal bilateral iliac wings, sacroiliac joints and visualized sacrum. Normal bilateral superior and inferior pubic rami. There are degenerative changes of the pubic symphysis with articular narrowing and sclerosis. Normal bilateral ischial tuberosities. Normal visualized femoral head. Normal acetabulum. Normal hip joint. RAD/HIP, UNI W/ Pelvis 2-3 Views IMPRESSION: No acute abnormality is seen. Metallic ring is seen overlying the right hemipelvis. Electronically Signed: Farhad Soares, at 10:35 EDT , Service support ,
[2019-09-23 10:32] VITALS: BP 118/65; PULSE 82; RESP 18; O2SAT 95
[2019-09-23] MEDS: Acetaminophen 500 MG Tablet 1000 MG PO (10:50)
[2019-09-23] MEDS: 0.9% Normal Saline 1,000 ML 150 ML IV (10:51)
[2019-09-23 11:15] VITALS: BP 130/58; PULSE 76; RESP 18
[2019-09-23 11:46] LABS: Absolute Lymphocyte Count 1.33 X10^3/uL (0.83-4.51); Basophil# 0.01 X10^3/uL; Basophil% 0.2 % (0-1); Eosinophil# 0.07 X10^3/uL; Eosinophils% 1.2 % (0-5); Hematocrit 39.8 % (37-47); Hemoglobin 12.7 g/dL (12.0-15.0); Lymphocyte # 1.33 X10^3/ul (4.0); Lymphocyte % 21.9 % (19-41); Mean Corp Hgb Conc 31.9 g/dL (32-36); Mean Corpuscular Hgb 30.4 pg (27.0-32.0); Mean Corpuscular Volume 95.2 fL (81-99); Mean Platelet Vol. 9.7 fl (6.2-12.0); Monocyte# 0.63 X10^3/uL; Monocyte% 10.4 % (0-10); NRBC Flagged by Analyzer 0 % (0-5); Neutrophil # 4.01 X10^3/uL (2.7-7.7); Platelet Count 164 K/mm3 (150-450); RBC Distribution Width CV 15.1 % (11.6-14.6); RBC Distribution Width SD 53.3 fl (35.1-43.9); Red Blood Count 4.18 M/mm3 (4.2-5.4); White Blood Count 6.1 K/mm3 (4.4-11.0)
--- NOTE | 2019-09-23 12:00 | CM.ED ---
SOCIAL WORK INFORMANT: DR. ROSS REASON FOR REFERRAL: DISCHARGE PLANNING/[facility] PSYCH DISCUSSED CASE WITH DR. ROSS, PATIENT FROM [facility]. PATIENT'S MEDICATIONS HAVE BEEN CHANGED OVER LAST FEW WEEKS AND PATIENT EXHIBITING HYPER SEXUAL BEHAVIORS, FREQUENT FALLS. POSSIBLE NEED FOR PERCY PSYCH. MET WITH PATIENT AND DAUGHTER/HPOA, GILBERTO IN ROOM. INTRODUCED ROLE AND REASON FOR REFERRAL. PER GILBERTO, PATIENT DIAGNOSED WITH EARLY ONSET ALZHEIMER'S IN 2009, IN 2015. DAUGHTERS WERE CARING FOR PATIENT IN THE HOME UNTIL May PATIENT WAS ACCEPTED AT [facility]. DAUGHTER STATES DR. KEARNEY AND PSYCH NURSE, KATHLEEN HAVE BEEN CHANGING MEDICATIONS AROUND. PATIENT HAS HAD INCREASE IN ANXIETY AND AGITATION. PATIENT HAS BEEN EXHIBITING HYPER SEXUAL, COMBATIVE AND EXIT SEEKING BEHAVIORS. DISCUSSED PERCY PSYCH PLACEMENT. CALL TO [facility]. SPOKE WITH ROBERTA. CASE DISCUSSED. ROBERTA STATES FACILITY WILLING TO ACCEPT PATIENT BACK AND CONTINUE TO WORK ON MEDICATION STABILIZATION. CALL FACILITATED TO PATIENT'S DAUGHTER. ROBERTA DISCUSSED RETURN VS PERCY PSYCH PLACEMENT. DAUGHTER REQUESTING TIME TO DISCUSS OPTIONS WITH SISTER, JOJO. THIS WORKER TO REMAIN AVAILABLE FOR NEEDS AND ASSIST WITH SAFE AND APPROPRIATE DISCHARGE PLANNING. PLAN: CHERYL CLARK, PICKING SUPERVISOR, FACILITIES OFFICER.
[2019-09-23 12:05] LABS: AST(SGOT) 31 U/L (15-37); Alanine Aminotransfer ALT/SGPT 37 U/L (13-56); Albumin, Serum 3.1 g/dL (3.2-5.0); Alkaline Phosphatase 73 U/L (45-117); Anion Gap 6 (5-15); BUN 6 mg/dL (7-18); BUN/Creat Ratio 10.6 RATIO (10-20); Calcium,Total 8.6 mg/dL (8.5-10.1); Chloride 107 mmol/L (98-107); Creatinine, Serum 0.57 mg/dL (0.55-1.02); EST Glomerular Filtration Rate 109 mL/min (>60); Est Glom Filt Rate - Afr Amer 131 mL/min (>60); Estimated Creatinine Clearance 40.26 ml/min; Glucose 93 mg/dL (74-106); Protein, Total 6.1 g/dL (6.4-8.2); Sodium Level 145 mmol/L (136-145); Thyroid Stim Hormone (TSH) 3.33 uIU/mL (0.358-3.74)
--- NOTE | 2019-09-23 12:05 | CT_ITS ---
STUDY: CT ABDOMEN AND PELVIS WITHOUT CONTRAST REASON FOR EXAM: Female, 79 years old. METALLIC RING SEEN ON HIP XRAY RADIATION DOSAGE (If Supplied By Facility): CTDIvol = ( 7.19 ) mGy, DLP = ( 370.19 ) mGycm TECHNIQUE: Transaxial images were obtained from the dome of the diaphragm to the symphysis pubis without oral contrast, and without intravenous contrast. Sagittal and coronal images were reconstructed. Individualized dose optimization techniques were used for this CT. COMPARISON: Comparison is made with prior examination dated June 24, 2019. FINDINGS: Stable mild increased markings at the lung bases suggest some mild scarring and/or atelectasis. The visualized portions of the heart are within normal limits. Normal liver. Normal gallbladder and extrahepatic biliary system. There is a benign calcified granuloma of the spleen. Normal pancreas. Normal bilateral adrenal glands. Normal right kidney. Normal left kidney. Normal visualized stomach. Normal small intestine. Dense metallic artifact is seen in the right hemipelvis in the region of rectosigmoid junction. This corresponds to the metallic density seen on the radiograph of the abdomen suggestive of a foreign body most likely representing a ring. Scattered sigmoid diverticula. The appendix is visualized and appears normal. There is scattered atherosclerotic calcification of the abdominal aorta, without a demonstrated aneurysm. Normal inferior vena cava. Normal retroperitoneum. Normal urinary bladder. Normal abdominal wall. There are diffuse degenerative changes of the visualized lumbar spine. CT/Abdomen/Pelvis without Cont IMPRESSION: Findings suggestive of a foreign body in the rectosigmoid colon as described. The remainder the examination is unchanged. Electronically Signed: Farhad Soares, at 12:38 EDT , Service support ,
[2019-09-23 12:26] LABS: Alcohol, Blood (Medical)-Serum < 3.0 mg/dL; Valproic Acid (Depakene) Level 30 ug/mL (50-100)
--- NOTE | 2019-09-23 12:37 | ED.DCSUM_ITS ---
- ER Visit Summary Date of Service: 09/23/19 Chief Complaint: Fall History of Present Illness: The patient is a [address] Salinas. 8:00 this morning she had an unwitnessed fall. She is not on an anticoagulant. Patient has a history of dementia is unable to contribute to the history at all. Physical Examination: Vitals: Stable. Afebrile. Head: Soft tissue swelling contusion to her nose as well as her eyes bilaterally. These are not swollen shut. She has dried blood in her nares. There is no septal hematoma. Neck: No vertebral tenderness. Full ROM without difficulty. Back: No vertebral tenderness. General: A&O x 1. NAD. Cardiovascular exam: Regular rate and rhythm, no murmur, rub or gallop. Respiratory exam: Chest nontender. No crepitus. Clear to auscultation bilaterally. No wheezes or stridor. Abdominal exam: Soft, nontender, nondistended, normal bowel sounds. No pain in RUQ or LUQ specifically. No peritoneal signs. Extremity: Contusion over her right buttock and hip. Moderate tenderness palpation here. No pain with internal or external rotation. Mild tenderness palpation over her left proximal humerus. Good range of motion with no pain.. Test Results: CBC shows monocytes of 10. Chem-7 shows a potassium of 3.0 and BUN of 6. LFTs show total protein of 6.1 albumin 3.1, total bili 1.10. TSH is normal. Depakote level is 30. Alcohol is negative. Left humerus x-ray shows no acute disease. Right hip x-ray shows no fracture. However, there is a metallic foreign body in her stomach. CT brain shows chronic changes with soft tissue swelling over her nose. CT C-spine shows degenerative changes. CT abdomen/pelvis without contrast shows a metallic foreign body consistent with a ring in her rectosigmoid colon. Emergency Department Course and Treatment: Patient is resting comfortably. When the x-ray showed what appeared to be a ring in her colon I discussed this with the daughter. She reports patient typically wears a wedding ring. This is now gone. Patient is not able to contribute to the history of this either. When we initially contacted the halfway they stated they wanted the patient to go to [facility]. However, case management has seen the patient and spoken with the halfway as well as with the daughter and they are willing to take her back. The family has decided they would like her go back to [facility]. Treatment Plan: There instructed to watch her stools for the next few days to obtain the reading. Follow-up with Dr. Salinas for further evaluation and treatment. Return to the emergency department for any worsening symptoms. Disposition: To home in improved and stable condition. Impression: 1. Fall. 2. Hypokalemia. 3. Facial contusions. 4. Foreign body in rectosigmoid. 5. Right hip contusion. This note was generated with [employer] software. It may contain incorrect words, spelling, and punctuation that were not noted in review of the chart prior to signing ED Disposition - Plan for ED Patient: Instructions: ED Fall Uncertain Cause, ED Foreign Body Swallowed Referrals: Donavan Cuenca MD [Primary Care Provider] - As soon as possible Additional Instructions: Watch the stool for the next few days to retrieve the wedding ring.
[2019-09-23 13:05] LABS: Amphetamine Urine VISTA NEGATIVE (<1000 ng/mL); Barbiturate Urine VISTA NEGATIVE (< 200 ng/mL); Benzodiazepine Urine VISTA POSITIVE (< 200 ng/mL); Cocaine Urine VISTA NEGATIVE (< 300 ng/mL); Ecstacy Urine VISTA NEGATIVE (< 500 ng/mL); Methadone Urine VISTA NEGATIVE (< 300 ng/mL); PCP Urine VISTA NEGATIVE (< 25 ng/mL); THC Urine VISTA NEGATIVE (< 50 ng/mL); Vista UDS pH Range 6
[2019-09-23 13:52] LABS: Mucous, Urine 0 SEEN /hpf (<or=2+); Red Blood Cells-Urine 0 SEEN /hpf (0-5); Squamous Epithelial Cells - UA 0 SEEN /hpf (5-10)
[2019-09-23 13:55] LABS: Color, Urine Yellow (Yellow); Glucose, Dipstick Normal (Normal); Ketone-Dipstick 50 mg/dl (Negative); Leukocyte Esterase-Dipstick Negative /ul (Negative); Nitrite-Dipstick Negative (Negative); Occult Blood-Urine Negative /ul (Negative); Protein-Dipstick Negative (Negative); Specific Gravity, Urine 1.015 (1.002-1.030); Urine Clarity Clear (Clear); Urine Urobilinogen 8 mg/dl (Normal)
[2019-09-23 13:57] LABS: Urine Bilirubin Dipstick 1 mg/dL (Negative)
[2019-09-23 14:07] LABS: Amorphous Sediment 2+; Bacteria 2+ /hpf (None Seen); White Blood Cells 0-5 SEEN /hpf (0-5)
[2019-09-23 14:09] VITALS: PULSE 78; RESP 18; O2SAT 100
--- NOTE | 2019-09-23 14:45 | CM.ED ---
SOCIAL WORK AFTER MUCH EDUCATION AND DISCUSSION ON DISCHARGE PLANS (RETURN TO [facility] VS [facility]), DAUGHTER REPORTS SPOKE WITH ISAEL WANG NURSE AT [facility] AND WISHES FOR PATIENT TO RETURN TO [facility] AT THIS TIME. STAFF UPDATED. NURSE TO CALL REPORT. PLAN: RETURN TO [facility]. Rossana CLARK MSW, [facility].
--- NOTE | 2019-09-23 14:46 | NURSING ---
report given to nurse staples at [facility]
[2019-09-23 15:10] VITALS: BP 132/60; PULSE 80; RESP 18
== END 2019-09-23 15:36 | disposition home or self-care (01) ==
LOC: ED 09:44
PROVIDERS: Emergency Provider Emergency Medicine; PCP Family Medicine
DX: S00.33XA Contusion of nose, initial encounter (principal); S70.01XA Contusion of right hip, initial encounter; S30.0XXA Contusion of lower back and pelvis, initial encounter; T18.5XXA Foreign body in anus and rectum, initial encounter; E87.6 Hypokalemia; I44.4 Left anterior fascicular block; W19.XXXA Unspecified fall, initial encounter; X58.XXXA Exposure to other specified factors, initial encounter; Y93.9 Activity, unspecified; Y92.9 Unspecified place or not applicable; F03.90 Unspecified dementia, unspecified severity, without behavioral disturbance, psychotic disturbance, mood disturbance, and anxiety; I10 Essential (primary) hypertension; H40.9 Unspecified glaucoma; Z79.82 Long term (current) use of aspirin; Z79.899 Other long term (current) drug therapy
CPT/HCPCS: 70450; 72125; 73060; 73502; 74176; 80053; 80164; 80307; 80320; 81001; 84443; 85025; 87086; 93005; 96360; 96361; 99285; J7030; P9612; A4216; G0480

== ENCOUNTER → 2019-11-16 10:00 | Outpatient (REF) | payer MEDICARE, OTHER, SELFPAY ==
[2019-11-16 11:49] LABS: Hematocrit 36.2 % (37-47); Hemoglobin 11.3 g/dL (12.0-15.0); Mean Corp Hgb Conc 31.2 g/dL (32-36); Mean Corpuscular Hgb 31.7 pg (27.0-32.0); Mean Corpuscular Volume 101.4 fL (81-99); Mean Platelet Vol. 10.2 fl (6.2-12.0); Platelet Count 188 K/mm3 (150-450); RBC Distribution Width CV 15.9 % (11.6-14.6); RBC Distribution Width SD 59.3 fl (35.1-43.9); Red Blood Count 3.57 M/mm3 (4.2-5.4); White Blood Count 7.1 K/mm3 (4.4-11.0)
[2019-11-16 12:21] LABS: ALB/GLOB Ratio 1.1 RATIO (0.9-2.4); AST(SGOT) 35 U/L (15-37); Alanine Aminotransfer ALT/SGPT 36 U/L (13-56); Albumin, Serum 3.2 g/dL (3.2-5.0); Alkaline Phosphatase 67 U/L (45-117); Anion Gap 6 (5-15); BUN 14 mg/dL (7-18); Calcium,Total 8.4 mg/dL (8.5-10.1); Chloride 105 mmol/L (98-107); Creatinine, Serum 0.74 mg/dL (0.55-1.02); EST Glomerular Filtration Rate 80 mL/min (>60); Est Glom Filt Rate - Afr Amer 97 mL/min (>60); Glucose 81 mg/dL (74-106); Potassium 3.8 mmol/L (3.5-5.1); Protein, Total 6.2 g/dL (6.4-8.2); Sodium Level 142 mmol/L (136-145)
== END ==
PROVIDERS: PCP Family Medicine; Referring Provider Family Medicine; Visit Provider Family Medicine
DX: B02.29 Other postherpetic nervous system involvement (principal); B02.9 Zoster without complications; E78.5 Hyperlipidemia, unspecified; F02.81 Dementia in other diseases classified elsewhere, unspecified severity, with behavioral disturbance; F41.9 Anxiety disorder, unspecified; G30.8 Other Alzheimer's disease; G62.9 Polyneuropathy, unspecified; H49.23 Sixth [abducent] nerve palsy, bilateral; H81.10 Benign paroxysmal vertigo, unspecified ear; I34.1 Nonrheumatic mitral (valve) prolapse; L03.90 Cellulitis, unspecified
CPT/HCPCS: 80053; 85027

== ENCOUNTER → 2019-11-16 16:00 | Outpatient (REF) | payer MEDICARE, OTHER, SELFPAY ==
[2019-11-16 17:20] LABS: Valproic Acid (Depakene) Level 49 ug/mL (50-100)
== END ==
PROVIDERS: PCP Family Medicine; Visit Provider Family Medicine
DX: B02.9 Zoster without complications (principal); B02.29 Other postherpetic nervous system involvement; E78.5 Hyperlipidemia, unspecified; F02.81 Dementia in other diseases classified elsewhere, unspecified severity, with behavioral disturbance; F41.9 Anxiety disorder, unspecified; G30.8 Other Alzheimer's disease; G62.9 Polyneuropathy, unspecified; H49.23 Sixth [abducent] nerve palsy, bilateral; H81.10 Benign paroxysmal vertigo, unspecified ear; I34.1 Nonrheumatic mitral (valve) prolapse; L03.90 Cellulitis, unspecified
CPT/HCPCS: 80053; 80164; 85027

== ENCOUNTER → 2020-02-29 08:10 | Outpatient (REF) | payer MEDICARE, OTHER, SELFPAY ==
[2020-02-29 10:41] LABS: AST(SGOT) 15 U/L (15-37); Alanine Aminotransfer ALT/SGPT 14 U/L (13-56); Cholesterol 114 mg/dL (200); High Density Lipoprotein 47 mg/dL; Triglycerides 112 mg/dL; Very Low Density Lipoprotein 22 mg/dL (5-40)
== END ==
LOC: OLS.BROOKB 08:10
PROVIDERS: PCP Family Medicine
DX: E78.5 Hyperlipidemia, unspecified (principal); Z79.899 Other long term (current) drug therapy
CPT/HCPCS: 36415; 80061; 84450; 84460

== ENCOUNTER → 2020-05-03 12:54 | Outpatient (REF) | payer MEDICARE, OTHER, SELFPAY ==
[2020-05-03 13:13] LABS: Color, Urine Yellow (Yellow); Glucose, Dipstick Normal (Normal); Ketone-Dipstick Negative (Negative); Leukocyte Esterase-Dipstick 25 /ul (Negative); Nitrite-Dipstick Negative (Negative); Occult Blood-Urine Negative /ul (Negative); Protein-Dipstick Negative (Negative); Urine Bilirubin Dipstick Negative (Negative); Urine Clarity Sl. Cloudy (Clear); Urine Urobilinogen 4 mg/dl (Normal); Urine pH 6.5 (5.0 - 8.0)
== END ==
LOC: OLS.BROOKB 12:54
PROVIDERS: PCP Family Medicine; Visit Provider Family Medicine
DX: R53.83 Other fatigue (principal); R39.9 Unspecified symptoms and signs involving the genitourinary system
CPT/HCPCS: 81002; 87086; 87088

== ENCOUNTER → 2020-07-14 04:00 | Outpatient (REF) | payer MEDICARE, OTHER, SELFPAY ==
[2020-07-14 10:02] LABS: Bacteria 0 SEEN /hpf (None Seen); Mucous, Urine 0 SEEN /hpf (<or=2+); Red Blood Cells-Urine 0 SEEN /hpf (0-5); Squamous Epithelial Cells - UA 0 SEEN /hpf (5-10); White Blood Cells 0 SEEN /hpf (0-5)
[2020-07-14 10:29] LABS: Color, Urine Yellow (Yellow); Glucose, Dipstick Normal (Normal); Ketone-Dipstick 5 mg/dl (Negative); Leukocyte Esterase-Dipstick Negative /ul (Negative); Nitrite-Dipstick Negative (Negative); Occult Blood-Urine Negative /ul (Negative); Protein-Dipstick Negative (Negative); Urine Bilirubin Dipstick Negative (Negative); Urine Clarity Clear (Clear); Urine Urobilinogen 4 mg/dl (Normal)
== END ==
LOC: OLS.BROOKB 04:00
PROVIDERS: PCP Family Medicine; Referring Provider Family Medicine; Visit Provider Family Medicine
DX: N39.0 Urinary tract infection, site not specified (principal)
CPT/HCPCS: 81001; 87086; 87088

== ENCOUNTER → 2020-08-11 05:00 | Outpatient (REF) | payer MEDICARE, OTHER, SELFPAY ==
[2020-08-11 09:04] LABS: Hematocrit 40.3 % (37-47); Hemoglobin 13.1 g/dL (12.0-15.0); Mean Corp Hgb Conc 32.5 g/dL (32-36); Mean Corpuscular Hgb 32.5 pg (27.0-32.0); Mean Platelet Vol. 9.9 fl (6.2-12.0); Platelet Count 138 K/mm3 (150-450); RBC Distribution Width CV 16.4 % (11.6-14.6); RBC Distribution Width SD 59.7 fl (35.1-43.9); Red Blood Count 4.03 M/mm3 (4.2-5.4); White Blood Count 5.3 K/mm3 (4.4-11.0)
[2020-08-11 09:23] LABS: Valproic Acid (Depakene) Level 77 ug/mL (50-100)
== END ==
LOC: OLS.BROOKB 05:00
PROVIDERS: PCP Family Medicine
DX: F03.90 Unspecified dementia, unspecified severity, without behavioral disturbance, psychotic disturbance, mood disturbance, and anxiety (principal); Z79.899 Other long term (current) drug therapy
CPT/HCPCS: 36415; 80164; 85027

== ENCOUNTER → 2020-08-21 05:00 | Outpatient (REF) | payer MEDICARE, OTHER, SELFPAY ==
[2020-08-21 07:56] LABS: Hematocrit 38.8 % (37-47); Hemoglobin 12.2 g/dL (12.0-15.0); Mean Corp Hgb Conc 31.4 g/dL (32-36); Mean Corpuscular Hgb 31.9 pg (27.0-32.0); Mean Corpuscular Volume 101.3 fL (81-99); Mean Platelet Vol. 9.3 fl (6.2-12.0); Platelet Count 153 K/mm3 (150-450); RBC Distribution Width CV 15.9 % (11.6-14.6); Red Blood Count 3.83 M/mm3 (4.2-5.4); White Blood Count 4.7 K/mm3 (4.4-11.0)
== END ==
LOC: OLS.BROOKB 05:00
PROVIDERS: PCP Family Medicine; Referring Provider Family Medicine; Visit Provider Family Medicine
DX: E78.5 Hyperlipidemia, unspecified (principal)
CPT/HCPCS: 36415; 85027

== ENCOUNTER 2020-11-13 01:32 | Emergency (ER) | payer MEDICARE, OTHER, SELFPAY ==
[2020-11-13 01:34] VITALS: BP 125/110; PULSE 92; RESP 16; TEMP 36.2; O2SAT 100; BMI 18.3
--- NOTE | 2020-11-13 01:44 | EX.ED.GENINJ ---
HPI History of Present Illness Chief Complaint: Fall Detail of Chief Complaint: Unknown Informant: EMS [facility] Onset/Context/Timing Onset: Today Mechanism/Context: Fall Location of pain/injuries: - (Left maxillary region) Quality of Pain: - (Denies pain) Current Severity: Gone Maximum Severity: Unable to determine since patient has dementia and oriented x1 Worsened by: Unknown Relieved by: Unknown Associated Symptoms Associated Symptoms: Positive for - (Circumstances that led to the fall unknown) Length of loss of consciousness: Unknown Narrative Narrative: Patient is an 80-year-old woman who has Alzheimer's dementia and a signed DNR comfort care only legal document. Patient was found on the floor. She has a significant hematoma over the left maxillary region. She denies head pain. She denies change in vision. She denies ringing or ears. She denies dental pain. She denies neck pain. She denies chest pain. She denies shortness of breath. She denies nausea. She denies numbness or tingling in her arms or legs. Tetanus Immunization: Unknown (We will have nurse review prior records and retirement documents) Prior similar symptoms: No Recent Illness/Hospitalization: No PFSH PFSH Medical History Alzheimer disease Dementia HTN (hypertension) Hyperlipemia Home Medications latanoprost 1 drop EACH EYE QHS 06/24/19 [History Last Taken Unknown] ondansetron 4 mg PO Q6H PRN PRN 06/24/19 [History Last Taken Unknown] acetaminophen 650 mg PO Q6H PRN PRN 06/25/19 [History Last Taken Unknown] divalproex 500 mg PO TID 06/25/19 [History Last Taken Unknown] sertraline 50 mg PO BID 06/25/19 [History Last Taken Unknown] cimetidine 400 mg PO BID 09/23/19 [History Last Taken Unknown] multivitamin 1 ea PO DAILY 09/23/19 [History Last Taken Unknown] buspirone 5 mg PO TID 11/13/20 [History Last Taken Unknown] buspirone 7.5 mg PO DAILY 11/13/20 [History Last Taken Unknown] gabapentin 100 mg PO TID 11/13/20 [History Last Taken Unknown] lorazepam 0.5 mg PO BID PRN 11/13/20 [History Last Taken Unknown] mirtazapine 15 mg PO QHS 11/13/20 [History Last Taken Unknown] quetiapine 12.5 mg PO DAILY 11/13/20 [History Last Taken Unknown] quetiapine 50 mg PO QHS 11/13/20 [History Last Taken Unknown] Allergy/AdvReac Type Severity Reaction Status Date / Time codeine Allergy Unknown Verified 11/13/20 01:39 ramipril [From Altace] Allergy Unknown Verified 11/13/20 01:39 Social History (Updated 11/13/20 @ 01:[address] Ed Carrillo MD) household members: none housing: retirement Smoking Status: Never smoker alcohol intake: never substance use type: does not use ROS ROS ED Review of Systems ROS Unobtainable: due to mental status and other Details: Alzheimer's dementia Constitutional Constitutional ED: Denies chills or fever(s) Eyes Eyes: Denies blurry vision or change in vision ENT ENT ED: Reports other Details: No history of bloody nose ; Denies ear pain or sore throat Cardiovascular Cardiovascular: Denies chest pain Respiratory/Chest Respiratory/Chest: Denies dyspnea Gastrointestinal Gastrointestinal: Denies abdominal pain, nausea or vomiting Genitourinary Genitourinary ED: Reports other Details: Unable to determine Musculoskeletal Musculoskeletal: Denies back pain or neck pain Integumentary Reports other; Denies rash Neurologic Neurologic: Denies weakness Hematologic/Lymphatic Hematologic/Lymphatic: Denies easy bruising Allergic/Immunologic Allergic/Immunologic ED: Denies mouth swelling EXAM Physical Exam Const Vital Signs: 11/13/20 01:34 11/13/20 01:39 Temperature 97.2 F L Temperature Source Oral Pulse Rate 92 Respiratory Rate 16 Respiratory Effort Normal Non-Labored Respiratory Depth Normal Respiratory Pattern Normal Blood Pressure 125/110 H Blood Pressure Mean 115 Pulse Ox 100 Oxygen Delivery Method Room Air Room Air Positive well nourished and well developed General Appearance ED: well developed and NAD HEENT Reports TM's clear HEENT Narrative: The septal deviation hematoma. There is no clinical findings of basal skull fracture. She does have a significant subcutaneous hematoma over the left maxillary region. There is no step-off of the infraorbital rim. She denies decreased sensation on the left compared to the right. Tooth #8 has an Jauregui 2 fracture. On known if acute or old. trauma and tenderness Nose: Negative for septum abnormal Tympanic Membrane ED: Yes TM's clear Eyes PERRL and EOMs intact bilaterally General Eye ED: Yes other Other Details: There is no subconjunctival hemorrhage noted. There is no nystagmus. There is no APD. Neck full ROM General: Negative for tenderness Chest Wall inspection of chest normal Resp normal respiratory effort and clear to auscultation bilaterally Cardio regular rhythm, S1 normal heart sound, S2 normal heart sound and no murmurs Rate: regular rate GI normal to inspection, nondistended, normoactive bowel sounds and non-tender Palpation: soft Back/Spine normal to inspection and no thoracic nor lumbar tenderness General Back: Negative for CVA tenderness Extremity normal to inspection and full ROM General Extremety ED: Negative for tenderness Neuro No oriented x3, CN's II-XII intact bilaterally, moves all extremities and no sensory deficits noted Neuro Narrative: Baseline is orientation x1. Sensorium / Orientation: oriented to person; Negative for alert Sensory Exam: other There is no clonus or Babinski sign noted. Psych mental status grossly normal Skin no jaundice General Skin Exam: other Hematoma left side of the face MDM MDM MDM Narrative Medical decision making narrative: Since patient is DNR comfort care only and has history of Alzheimer's dementia CT of the head was not obtained. Since there is no C-spine tenderness she has full active range of motion with out pain or grimacing imaging was not obtained. Since she does have a significant facial hematoma facial x-rays were obtained. Daughter who is the POA arrived. She is concerned her mother may have a urinary tract infection. Will obtain a straight cath urine specimen. Lab Data Attestation: I reviewed the patient's lab results. Labs: Laboratory Results - last 24 hr 11/13/20 11/13/20 01:40 02:50 Urine Color Yellow Urine Clarity Clear Urine pH 6.0 Ur Specific [place] 1.015 Urine Protein Negative Urine Glucose (UA) Normal Urine Ketones 5 H Urine Occult Blood Negative Urine Nitrite Negative Urine Bilirubin Negative Urine Urobilinogen 1 H Ur Leukocyte Esterase Negative Urine RBC 0 SEEN Urine WBC 0 SEEN Ur Squamous Epith Cells 0 SEEN Urine Bacteria 0 SEEN Urine Mucus 0 SEEN POC Glucose 85 Radiography Diagnostic Testing: Radiology Impression Facial Bones X-Ray 11/13/20 02:05 IMPRESSION: Negative facial bone series. at 0248 Reported and signed by: Randall Elliott MD Electronically Signed: Randall Elliott MD at 2:47 EDT Tel , Service support , 3 views of the facial bones was obtained. There is no evidence of fracture, air-fluid level in the maxillary sinuses or evidence of orbital rim fracture. The x-ray was interpreted by me at 0235. Discharge Plan Triage Chief Complaint: Fall ED Provider: Ed Carrillo Dx/Rx/DC Orders Clinical Impression: Injury due to fall, Contusion of face, Contusion of occipital region of scalp, Alzheimer's dementia Instructions: ED Scalp Contusion, ED Facial Contusion Prescriptions: No Action latanoprost 1 DROP bottle 1 drop EACH EYE QHS RF: 0 ondansetron 4 MG tablet,disintegrating 4 mg PO Q6H PRN PRN (Reason: Nausea) RF: 0 acetaminophen 325 MG tablet 650 mg PO Q6H PRN PRN (Reason: Pain Or Fever) RF: 0 divalproex 250 MG tablet 500 mg PO TID RF: 0 sertraline 50 MG tablet 50 mg PO BID RF: 0 cimetidine 400 MG tablet 400 mg PO BID RF: 0 multivitamin 1 EACH tablet 1 ea PO DAILY RF: 0 quetiapine 25 mg tablet 12.5 mg PO DAILY RF: 0 buspirone 5 mg tablet 5 mg PO TID RF: 0 lorazepam 0.5 mg Tablet 0.5 mg PO BID PRN (Reason: Anxiety) RF: 0 buspirone 7.5 mg tablet 7.5 mg PO DAILY RF: 0 mirtazapine 15 mg tablet 15 mg PO QHS RF: 0 gabapentin 100 mg capsule 100 mg PO TID RF: 0 quetiapine 50 mg tablet 50 mg PO QHS RF: 0 Primary Care Provider: Donavan Cuenca Referrals: Donavan Cuenca MD [Primary Care Provider] - As Needed Disposition Disposition: [facility]-Way Facility Discharge Location: [facility]
[2020-11-13 01:46] LABS: Bedside Glucose 85 mg/dL (70-110)
--- NOTE | 2020-11-13 02:05 | RAD_ITS ---
EXAM: XR FACE COMPLETE, 3 OR MORE VIEWS : 1940 CLINICAL INDICATION: Blunt, with hematoma left maxilla region TECHNIQUE: Frontal, lateral and oblique views of the face. This report was created using [facility] report generation technology. COMPARISON: None. FINDINGS: BONES/JOINTS: Unremarkable. No displaced fracture. No subluxation. No sclerotic or destructive changes observed. SINUSES: No acute findings. SOFT TISSUES: Unremarkable. No soft tissue swelling or gas. No radiopaque foreign body. RAD/Facial Bones min 3 Views IMPRESSION: Negative facial bone series. at 0248 Reported and signed by: Randall Elliott MD Electronically Signed: Randall Elliott MD at 2:47 EDT Tel , Service support ,
[2020-11-13 03:04] LABS: Bacteria 0 SEEN /hpf (None Seen); Mucous, Urine 0 SEEN /hpf (<or=2+); Red Blood Cells-Urine 0 SEEN /hpf (0-5); Squamous Epithelial Cells - UA 0 SEEN /hpf (5-10); White Blood Cells 0 SEEN /hpf (0-5)
[2020-11-13 03:06] LABS: Color, Urine Yellow (Yellow); Glucose, Dipstick Normal (Normal); Ketone-Dipstick 5 mg/dl (Negative); Leukocyte Esterase-Dipstick Negative /ul (Negative); Nitrite-Dipstick Negative (Negative); Occult Blood-Urine Negative /ul (Negative); Protein-Dipstick Negative (Negative); Specific Gravity, Urine 1.015 (1.002-1.030); Urine Bilirubin Dipstick Negative (Negative); Urine Urobilinogen 1 mg/dl (Normal)
[2020-11-13 03:10] LABS: Urine Clarity Clear (Clear)
--- NOTE | 2020-11-13 03:50 | ED.RN ---
this nurse gave report to nurse at [facility].
[2020-11-13 03:54] VITALS: BP 133/83; PULSE 93; RESP 14; O2SAT 98
== END 2020-11-13 03:55 | disposition skilled nursing facility (03) ==
PROVIDERS: Emergency Provider Emergency Medicine; PCP Family Medicine
DX: S00.03XA Contusion of scalp, initial encounter (principal); S00.83XA Contusion of other part of head, initial encounter; W19.XXXA Unspecified fall, initial encounter; Y93.9 Activity, unspecified; Y92.9 Unspecified place or not applicable; I10 Essential (primary) hypertension; E78.5 Hyperlipidemia, unspecified; G30.9 Alzheimer's disease, unspecified; F02.80 Dementia in other diseases classified elsewhere, unspecified severity, without behavioral disturbance, psychotic disturbance, mood disturbance, and anxiety; Z66 Do not resuscitate; Z79.899 Other long term (current) drug therapy
CPT/HCPCS: 70150; 81001; 82962; 99285; P9612

== ENCOUNTER → 2020-11-26 09:39 | Outpatient (REF) | payer MEDICARE, OTHER, SELFPAY ==
[2020-11-13 01:34] VITALS: BMI 18.3
[2020-11-26 09:40] LABS: Bacteria 0 SEEN /hpf (None Seen); Mucous, Urine 0 SEEN /hpf (<or=2+); Red Blood Cells-Urine 0 SEEN /hpf (0-5); Squamous Epithelial Cells - UA 0 SEEN /hpf (5-10); White Blood Cells 0 SEEN /hpf (0-5)
[2020-11-26 09:53] LABS: Color, Urine Yellow (Yellow); Glucose, Dipstick Normal (Normal); Ketone-Dipstick Negative (Negative); Leukocyte Esterase-Dipstick Negative /ul (Negative); Nitrite-Dipstick Negative (Negative); Occult Blood-Urine Negative /ul (Negative); Protein-Dipstick Negative (Negative); Specific Gravity, Urine 1.005 (1.002-1.030); Urine Bilirubin Dipstick Negative (Negative); Urine Clarity Clear (Clear); Urine Urobilinogen Normal (Normal)
== END ==
LOC: OLS.BROOKB 09:39
PROVIDERS: PCP Family Medicine; Visit Provider Family Medicine
DX: R39.81 Functional urinary incontinence (principal)
CPT/HCPCS: 81001; 87086; 87088